=== PATIENT | female | born 1975 | race Caucasian/White ===

== ENCOUNTER 2024-02-29 08:46 | Emergency (ER) | payer BC ==
[~2024-02-29] VITALS: Ht 172.7 cm; Wt 75.3 kg
[~2024-02-29 08:46] MED LIST: ATARAX25 MG PO; LAMICTAL200 MG PO; NEXIUM20 MG PO; PREDNICOT20 MG PO; ZOLOFT25 MG PO
[2024-02-29] MEDS ORDERED: FAMOTIDINE 50 ML IV ONE (09:00)
[2024-02-29] MEDS ORDERED: SERTRALINE HYD100 MG PO (09:00)
[2024-02-29] MEDS ORDERED: Dexamethasone Sodium Phospha 20 MG/5 ML VIAL IV ONE (09:00)
[2024-02-29 09:16] LABS: BASO % 0.2 % (0.0-1.0); EOS % 0.6 % (1.0-4.0); HEMATOCRIT 42.9 % (37.0-47.0); LYMPH # 1.4 10*3/uL (1.3-4.4); LYMPH % 26.9 % (27.0-41.0); MEAN CELL VOLUME 90.7 fl (81.0-99.0); MEAN CORPUSCULAR HGB 30.9 pg (27.0-31.0); MEAN PLATELET VOLUME 10.3 fl (9.6-12.3); MONO # 0.7 10*3/uL (0.1-1.0); NEUT % 59.3 % (47.0-73.0); PLATELET COUNT AUTOMATED 165 10*3/uL (130-400); RED BLOOD COUNT 4.73 10*6/uL (4.10-5.10); RED CELL DISTRI WIDTH 13.1 % (0-14.5); WHITE BLOOD COUNT 5.1 10*3/uL (4.8-10.8)
[2024-02-29 09:39] LABS: ALKALINE PHOSPHATASE 57 U/L (46-116); BUN 6 mg/dl (9-23); CHLORIDE 104 mmol/L (98-107); POTASSIUM 3.9 mmol/L (3.4-5.1); SGPT/ALT 22 U/L (5-49); TOTAL PROTEIN 7.2 gm/dL (6.0-8.0)
[2024-02-29] MEDS ORDERED: PREDNISONE20 M1 PO (09:58)
== END 2024-02-29 10:26 | disposition home or self-care (01) ==
LOC: ED 08:46
PROVIDERS: Internal Medicine
DX: L50.9 Urticaria, unspecified (principal); T78.40XA Allergy, unspecified, initial encounter; F31.9 Bipolar disorder, unspecified; Z88.8 Allergy status to other drugs, medicaments and biological substances; Z98.890 Other specified postprocedural states; X58.XXXA Exposure to other specified factors, initial encounter